=== PATIENT | female | born 1970 | race American Indian/Alaskan Native ===

== ENCOUNTER 2018-04-09 10:10 | Outpatient (CLI) | payer BC ==
--- NOTE | 2018-04-09 11:40 | XRay Report ---
AP ABDOMEN: HISTORY: Nausea with vomiting. This examination was scheduled as an upper GI series. The patient was unable to ingest the contrast agent so upper GI could not be performed. Band Leader film of the abdomen demonstrates an unremarkable bowel gas pattern. Surgical sutures are noted in the left upper quadrant which probably represent previous gastric sleeve surgery. There is no evidence for dilated bowel, space-occupying mass or pathologic calcifications. IMPRESSION: Unremarkable abdomen. See above.
== END 2018-04-09 10:11 | disposition home or self-care (01) ==
LOC: FLUORO 10:10
PROVIDERS: ATTEND Specialist
DX: R11.2 Nausea with vomiting, unspecified (principal)
CPT/HCPCS: 74018; Q9963